=== PATIENT | female | born 1950 | race Caucasian/White ===

== ENCOUNTER 2019-08-07 15:01 | Inpatient (IN) | payer MEDICAID ==
[2019-08-07] VITALS (12 sets, daily range): BP systolic 46–113; BP diastolic 22–61
[~2019-08-07] VITALS: Ht 160 cm; Wt 61.2 kg
--- NOTE | 2019-08-07 15:03 | NUR ---
BIBA FROM HOME. PER GRAND DAUGHTER, PT HAS BEEN ALOC X 1 DAY. PT NOTED TO HAVE GENERALIZED YELLOW SKIN COLOR. GRANDDAUGHTER STATES THAT PT WAS RECENTLY DIAGNOSED WITH LIVER CANCER X 1 MONTH. PT IS NOT ON ANY CANCER TREATMENT. PT GCS OF 7. PT PUT ON NON RE BREATHER MASK 10LPM, 02 SAT 100%. PT NON VERBAL AT THIS TIME. PT PLACED ON FULL ENGINE ROOM HELPER. ER TO EVALUATE PT.
[2019-08-07] MEDS ORDERED: NOREPINEPHRINE 4 MG in DEXTROSE 5% 250 ML IV ONE (15:30)
--- NOTE | 2019-08-07 15:30 | NUR ---
DR MATTHEW AT BEDSIDE FOR IO PROCEDURE ON RIGHT UPPER DUFFY.
--- NOTE | 2019-08-07 15:34 | NUR ---
NS 0.9% 1000 ML BOLUS RUNNING WITH A PRESSURE BAG ON IO TO RIGHT ANTERIOR DUFFY
--- NOTE | 2019-08-07 15:42 | NUR ---
Modesta astudillo in [facility] - 08/07/[address] MATTHEW AT BEDSIDE FOR FEMORAL CENTRAL LINE PROCEDURE.
--- NOTE | 2019-08-07 15:45 | NUR ---
2 MANAGER ANDROID AT BEDSIDE TO ASSIST DR MATTHEW.
--- NOTE | 2019-08-07 15:45 | NUR ---
DR MATTHEW AT BEDSIDE. TIME OUT DONE AT BEDSIDE WITH TWO IDENTIFIERS FOR FEMORAL CENTRAL LINE USING STERILE TECHNIQUE.
--- NOTE | 2019-08-07 15:53 | NUR ---
PT TOLERATING PROCEDURE WELL. MOANING SOUNDS NOTED.
--- NOTE | 2019-08-07 16:15 | NUR ---
LEFT FEMORAL CENTRAL LINE INITIATED BY DR MATTHEW, INTACT AND PATENT. AWAITING FOR RADIOLOGY.
[2019-08-07] MEDS ORDERED: NACL 0.9% 2,000 ML IV SCH (16:19)
[2019-08-07] MEDS ORDERED: PIPERACILLIN/TAZOBACTAM 3.375 GM in DEXT 5% MINI-BAG PLUS 50 ML IV ONE (16:20)
[2019-08-07] MEDS ORDERED: VANCOMYCIN 1,000 MG in DEXTROSE 5% 250 ML IV ONE (16:20)
--- NOTE | 2019-08-07 16:25 | NUR ---
RADIOLOGY AT BEDSIDE
--- NOTE | 2019-08-07 16:35 | NUR ---
5 MCG/MIN OF LEVOPHED TITRATED ORDERED, B/P:65/34, HR: 91
--- NOTE | 2019-08-07 16:40 | NUR ---
LEVOPHED TITRATED TO 7 MCG/MIN. B/P: 66/42, HR: 89
--- NOTE | 2019-08-07 16:50 | NUR ---
LEVOPHED TITRATED TO 8 MCG/MIN. BP:88/45, HR: 89
[2019-08-07 16:51] LABS: HEMATOCRIT 30.7 % (36-48); HEMOGLOBIN 9.3 g/dL (12.0-16.0); MEAN CORPUSCULAR HEMOGLOBIN 35 pg (27-31); MEAN CORPUSCULAR HGB CONC 30 g/dL (33-37); MEAN CORPUSCULAR VOLUME 116.3 fL (80-94); PLATELET COUNT (AUTO) 73 K/uL (140-450); RED BLOOD CELL COUNT(AUTO) 2.64 MIL/uL (4.20-5.40); RED CELL DISTRIBUTION WIDTH 23.8 % (11.6-13.7); WHITE BLOOD COUNT (AUTO) 15.2 K/uL (4.8-10.8)
--- NOTE | 2019-08-07 17:01 | NUR ---
CALLED AND ASKED PREMIUM AUDITOR TO COME.
[2019-08-07 17:04] LABS: PROTHROMBIN TIME 23.5 secs (10.8-13.4)
--- NOTE | 2019-08-07 17:06 | NUR ---
PT TO CT SCAN VIA ROSA W/ JASVIR AND PRIMARY RN.
[2019-08-07] MEDS ORDERED: LACTATED RINGERS 1,000 ML IV ONE (17:10)
[2019-08-07 17:11] LABS: LYMPHOCYTES % (MANUAL) 5 % (20-46); MONOCYTES % (MANUAL) 15 % (5-12)
[2019-08-07 17:12] LABS: BASOPHILS % (MANUAL) 0 % (0-2); EOSINOPHILS % (MANUAL) 0 % (0-4)
[2019-08-07 17:14] LABS: CORRECTED WHITE BLOOD COUNT 14.5 K/uL (4.5-11.0)
[2019-08-07 17:19] LABS: ALBUMIN 1.3 g/dL (3.4-5.0); ANION GAP 17.4 (8-16); CARBON DIOXIDE 29.3 mmol/L (21-32); CREATININE 2.4 mg/dL (0.6-1.3); POTASSIUM 4.7 mmol/L (3.5-5.1); TOTAL BILIRUBIN 11.6 mg/dL (0.0-1.0)
--- NOTE | 2019-08-07 17:29 | NUR ---
Patient returned from CT scan. RN re-evaluating patient at bedside.
[2019-08-07 17:30] LABS: APPEARANCE,URINE SL CLOUDY (CLEAR); BILIRUBIN,URINE 3+ (NEGATIVE); BLOOD, URINE NEGATIVE (NEGATIVE); COLOR,URINE AMBER (YELLOW); LEUKOCYTE ESTERASE ,URINE NEGATIVE (NEGATIVE); NITRITE, URINE NEGATIVE (NEGATIVE); PH,URINE 5.5 (5.0-9.0); UGLUCOSE NEGATIVE (NEGATIVE)
[2019-08-07] MEDS ORDERED: PIPERACILLIN/TAZOBACTAM 3.375 GM VIAL IV ONE (17:57)
[2019-08-07] MEDS ORDERED: VANCOMYCIN 1,000 MG VIAL ONE (17:58)
--- NOTE | 2019-08-07 18:23 | NUR ---
OPENS EYES INTERMITTENTLY. UNABLE TO FOLLOW COMMANDS. MOANING AT TIMES. EVEN AND UNLABORED BREATHING. NO SIGNS AND SYMPTOMS OF DISTRESS NOTED. DAUGHTER AT BEDSIDE. WILL CONTINUE TO MONITOR.
--- NOTE | 2019-08-07 18:30 | NUR ---
DR AMTTHEW AT BEDSIDE FOR PT RE EVALUATION AND SPEAKING TO PT'S DAUGHTER
[2019-08-07] MEDS ORDERED: DOCUSATE SODIUM 100 MG GELCAP PO PRN (18:40)
[2019-08-07] MEDS ORDERED: HYDROcodone/APAP 7.5/325 MG 1 TAB PO PRN (18:40)
[2019-08-07] MEDS ORDERED: ACETAMINOPHEN 325 MG TAB PO PRN (18:40)
[2019-08-07] MEDS ORDERED: fentaNYL 0.05 MG/ML VIAL IVP ONE (18:40)
[2019-08-07] MEDS ORDERED: SODIUM PHOSPHATE 118 ML ENEM RC ONE (19:10)
[2019-08-07] MEDS ORDERED: VANCOMYCIN PER PHARMACY MC PRN (19:25)
--- NOTE | 2019-08-07 19:25 | NUR ---
Pt report given to DIANA MALONE. Transfer of care at this time.
[2019-08-07 19:33] LABS: MAGNESIUM 2.7 mg/dL (1.8-2.4); PHOSPHORUS 6.3 mg/dL (2.5-4.9); THYROID STIMULATING HORMONE 1.63 uIU/mL (0.34-3.74)
--- NOTE | 2019-08-07 19:46 | NUR ---
INFORMED QUALITY TECHNICIAN THAT PT STILL INFUSING VACO AND LEVOPHED.
--- NOTE | 2019-08-07 19:47 | NUR ---
Patient will be admitted to care of [facility]. Admited to ICU. Will go to room BED 2. Belongings list completed. Report to DRUM SANDER. TRANSFERRED VIA GURNEY. ACCOMPANIED BY ARISTIDES ORTIZ, AIRAM EMT.
[2019-08-07 19:52] LABS: CHOL/HDL RATIO 11.7 (1-4.5)
--- NOTE | 2019-08-07 19:55 | NUR ---
REPORT GIVEN BY ER NURSE KIRA AND ARISTIDES AT BEDSIDE. ARRIVED VIA GURNEY ON A NON REBREATHER MASK OF 10ML/MIN FROM EMERGENCY ROOM. PATIENT HAD GRANDDAUGHTER AMOL PRESENT. PATIENT MOANING LIGHTLY. INFORMED GRANDAUGHTER AND PATIENT OF MOVING TO ICU BED AND APPLIED NEW LEADS FOR MANAGER DECISION SUPPORT. PATIENT HAS LAYER OF WHITE COATING ON TONGUE. GRANDDAUGHTER AND DAUGHTER STATES IT LOOKS LIKE PUS THAT KEEPS GETTING BIGGER. VAGINAL BLEEDING PRESENT AROUND BOWER CATHETER WHICH WAS PLACED IN EMERGENCY ROOM. MD VALADEZ AT BEDSIDE AND MADE AWARE OF BOTH. LEVOPHED @ 8 RUNNING IN LEFT FEMORAL AT THIS TIME. PATIENT IS YELLOW IN APPEARANCE THROUGHOUT WHOLE BODY. BRUISING ON LEFT HIP X 3. SKIN TEAR ON SACRAL AREA. NEW DRESSING APPLIED BY EMERGENCY. EMERGENCY TOOK PHOTOS. WOUND CULTURE DONE ON WOUND AFTER CLEANED IN ICU. MRSA CULTURE OF NARES TAKEN IN ICU. BRUISING NOTED BILATERALLY ON INNER ANKLES. MOTIFIED CODE. FAMILY STATES NO COMPRESSIONS AND NO CRASH CART. ONLY LEVOPHED AT THIS TIME PER MD. SPOKE WITH FAMILY OF PICC LINE. PATIENTS DAUGHTER RAFAT GAVE CONSENT FOR PICC LINE. PATIENT SHOWING NO S/S OF DISTRESS AT THIS TIME. [id number] 25 100%. WILL CONTINUE TO MONITOR.
--- NOTE | 2019-08-07 20:00 | NUR ---
CONSENT FOR PICC LINE PLACEMENT SIGNED BY FAMILY
--- NOTE | 2019-08-07 20:10 | NUR ---
AT BEDSIDE. [facility]. AWARE OF WHITE STUFF ON TONGUE. AND SCANT VAGINAL BLEEDING.
--- NOTE | 2019-08-07 20:25 | NUR ---
PICC LINE NURSE AND CHIEF ACCOUNTANT PRESENT AT BEDSIDE.PREPARING PLACEMENT OF PICC LINE ON RIGHT SIDE UPPER ARM.
--- NOTE | 2019-08-07 20:50 | NUR ---
ARCHANA AT PATIENTS BEDSIDE
[2019-08-07] MEDS ORDERED: LACTULOSE 20 GM/30 ML UDC PO SCH (21:00)
--- NOTE | 2019-08-07 21:00 | NUR ---
DAUGHTER (RAFTA [phone]) AND GRANDDAUGHTER (AMOL [phone]) AT PT BEDSIDE
--- NOTE | 2019-08-07 21:15 | NUR ---
DR AYALA AT BEDSIDE. SPEAKING WITH FAMILY AND TO PATIENT. VSS. WILL CONTINUE TO MONITOR
--- NOTE | 2019-08-07 21:20 | NUR ---
PER DR AYALA AND [facility] AT BEDSIDE, REMOVE IO LINE AND FEMORAL LINE DUE TO MIDLINE INSERTION. WILL FOLLOW UP
[2019-08-07] MEDS: DEXT 5% / NACL 0.45% 1,000 ML IV SCH (21:40)
--- NOTE | 2019-08-07 22:51 | NUR ---
per mack keep femoral and midline and continue to d/c io in left lower leg. io was removed with scant blood noted. pressure dressing placed in leg. will continue to monitor
--- NOTE | 2019-08-07 23:04 | NUR ---
edward called from lab. critical value. troponin 0.[address] giron. aware. lactic acid 3.3 also states she will cancel chest xray d/t midline
--- NOTE | 2019-08-07 23:15 | NUR ---
ASKED HOUSE SUP FOR FLEET ENEMA AND ZOSYN 2.25
[2019-08-07] MEDS ORDERED: fentaNYL 0.05 MG/ML VIAL ONE (23:26)
--- NOTE | 2019-08-07 23:49 | NUR ---
MUTHIAH STATES WILL CALL BACK ABOUT MEDICATIONS. CRITICAL LABS "THATS FINE" NO CHANGES AT THIS TIME
[2019-08-07] MEDS: PIPERACILLIN/TAZOBACTAM 2.25 GM in DEXTROSE 5% 50 ML IV SCH (23:57)
[2019-08-08] VITALS (94 sets, daily range): BP systolic 61–138; BP diastolic 28–82
[2019-08-08] MEDS ORDERED: PIPERACILLIN/TAZOBACTAM 2.25 GM VIAL IV ONE ×2 (00:01→03:51)
[2019-08-08] MEDS ORDERED: NOREPINEPHRINE 8 MG in DEXTROSE 5% 250 ML IV PRN (00:20)
--- NOTE | 2019-08-08 00:20 | NUR ---
CALLED [facility] FOR LEVOPHED ORDER
--- NOTE | 2019-08-08 00:25 | NUR ---
CALLED AFTER HOURS PHARMACY TO HAVE THEM VERIFY THE LEVOPHED ORDER FOR THE PT.
[2019-08-08] MEDS: NOREPINEPHRINE 16 MG in DEXTROSE 5% 250 ML IV PRN (00:45)
[2019-08-08] MEDS ORDERED: NOREPINEPHRINE 4 MG/4 ML VIAL IV ONE (00:48)
[2019-08-08] MEDS: ONDANSETRON 4 MG/2 ML VIAL IM/IVP PRN ×2 (02:03→09:05)
[2019-08-08] MEDS: DEXT 5% / NACL 0.45% 1,000 ML IV SCH ×3 (02:37→17:39)
[2019-08-08] MEDS ORDERED: NACL 0.9% 1,000 ML IV ONE (05:20)
[2019-08-08] MEDS: PIPERACILLIN/TAZOBACTAM 2.25 GM in DEXTROSE 5% 50 ML IV SCH ×3 (06:51→22:37)
--- NOTE | 2019-08-08 07:05 | NUR ---
REPORT GIVEN TO ANN Pack FOR CONTINUITY OF CARE Addendum: 08/08/19 at 2030 by Yanci Johnson RN RN PLEASE DISREGARD WRONG TIME
[2019-08-08] MEDS ORDERED: DEXTROSE 50% 50 ML SYR IVP PRN (07:10)
--- NOTE | 2019-08-08 07:45 | NUR ---
WASTED SUCCINYLCHOLINE 100 MG WITH WARNER BECKETT.ORDERED 100 MG ONLY.
--- NOTE | 2019-08-08 08:31 | NUR ---
PATIENT HAS BEEN SCREENED AND CATEGORIZED HIGH NUTRITION RISK. PATIENT WILL BE SEEN WITHIN 1-2 DAYS OF ADMISSION. 08/08/19-08/09/[address]
[2019-08-08] MEDS: NYSTATIN 500 MU/5 ML UDC PO SCH ×4 (09:00→20:04)
[2019-08-08] MEDS ORDERED: LACTULOSE 20 GM/30 ML UDC PO SCH (09:00)
[2019-08-08] MEDS: LACTOBACILLUS RHAMNOSUS GG 1 EACH CAP PO SCH (09:00)
[2019-08-08] MEDS: BLOOD GLUCOSE MONITORING 1 DEV DEV FS SCH ×3 (09:13→17:16)
--- NOTE | 2019-08-08 10:24 | NUR ---
NO CO NAUSEA.
--- NOTE | 2019-08-08 12:10 | NUR ---
08/08/19 RD INITIAL ASSESSMENT COMPLETED PLEASE REFER TO NUTRITION ASSESSMENT UNDER CARE ACTIVITY FOR ESTIMATED NUTRITIONAL NEEDS. RD RECOMMENDATIONS: 1. CONTINUE CLEAR LIQUID DIET TOLERATED. 2. RECOMMEND ADDING ENSURE CLEAR BID TO OPTIMIZE NUTRITION INTAKE. 3. WHEN MEDICALLY STABLE, CONSIDER CONSULTING CHEESEMAKER HELPER FOR APPROPRIATE DIET MODIFICATION AND CONSIDER ADDING ENSURE ENLIVE BID TO OPTIMIZE NUTRITION INTAKE. 4. RD WILL F/U 2-3 DAYS; HIGH RISK. CHOCO MCCLAIN, RD
[2019-08-08 12:20] LABS: HEMOGLOBIN 11.4 g/dL (12.0-16.0); MEAN CORPUSCULAR HEMOGLOBIN 35 pg (27-31); MEAN CORPUSCULAR HGB CONC 31 g/dL (33-37); MEAN CORPUSCULAR VOLUME 113.6 fL (80-94); RED CELL DISTRIBUTION WIDTH 23.2 % (11.6-13.7)
[2019-08-08 12:27] LABS: MAGNESIUM 2.3 mg/dL (1.8-2.4); PHOSPHORUS 8.1 mg/dL (2.5-4.9)
[2019-08-08 12:30] LABS: ANION GAP 16.9 (8-16); CARBON DIOXIDE 25.4 mmol/L (21-32); CREATININE 2.4 mg/dL (0.6-1.3); POTASSIUM 4.3 mmol/L (3.5-5.1)
[2019-08-08 12:32] LABS: HEMATOCRIT 36.8 % (36-48); PLATELET COUNT (AUTO) 66 K/uL (140-450); RED BLOOD CELL COUNT(AUTO) 3.24 MIL/uL (4.20-5.40)
[2019-08-08 13:04] LABS: WHITE BLOOD COUNT (AUTO) 33.7 K/uL (4.8-10.8)
[2019-08-08 13:06] LABS: LYMPHOCYTES % (MANUAL) 3 % (20-46); MONOCYTES % (MANUAL) 3 % (5-12)
[2019-08-08] MEDS: INSULIN LISPRO SLIDING SCALE 100 UNITS/ML VIAL SUBQ PRN ×2 (13:14→17:21)
[2019-08-08] MEDS: Z-GUARD PASTE TP SCH ×2 (13:19)
[2019-08-08] MEDS: MORPHINE SULFATE 2 MG/ML SYR IVP PRN ×2 (13:36→20:22)
--- NOTE | 2019-08-08 13:36 | NUR ---
dr reyes did not want heparin for central insertion
--- NOTE | 2019-08-08 14:20 | NUR ---
WHILE DOING THE SCREEN, PATIENT'S DAUGHTER RAFAT MENTIONED ABOUT HOSPICE. SHE STATED WHEN THEY WERE STILL IN [place], IT WAS RECOMMENDED TO THEM BUT DURING THAT TIME THEY WERE NOT READY YET. SHE ALSO STATED IF WE CAN HAVE SOMEONE FROM THE HOSPICE TO COME IN AND EXPLAIN FURTHER WHAT DOES HOSPICE MEANS AND PREFERABLY OCCITAN SPEAKING. I INFORMED HER THAT I CAN ARRANGE FOR THAT. DR CLARKE MADE AWARE. CONTACTED GEORGE OF [facility] AT [phone], SHE STATED SHE WILL HAVE ONE TO COME IN AND SPEAK TO THE FAMILY.
[2019-08-08] MEDS ORDERED: ALBUMIN HUMAN 25% 100 ML IV ONE (14:45)
[2019-08-08] MEDS ORDERED: PHYTONADIONE 10 MG/ML AMP IV SCH (14:50)
--- NOTE | 2019-08-08 15:53 | NUR ---
PER Dr. Park and Kamla the [employer] they are placing an order for a P500 Low Air loss Mattress, I have called [facility] and placed the order with Fritz at [facility] confirmation number [id number]
[2019-08-08] MEDS ORDERED: VANCOMYCIN 750 MG in DEXTROSE 5% 250 ML IV SCH (16:00)
--- NOTE | 2019-08-08 16:00 | NUR ---
LEFT FEMORAL CENTRAL LINE REMOVED.PRESSURE APPLIED.NO BLEEDING NOTED
[2019-08-08 17:13] LABS: T4 (THYROXINE) 1.4 ug/dL (4.5-12.0)
[2019-08-08] MEDS: OCTREOTIDE ACETATE 1.25 MG in NACL 0.9% 250 ML IV SCH (17:15)
[2019-08-08] MEDS: LACTULOSE 20 GM/30 ML UDC PO SCH (17:18)
[2019-08-08] MEDS: MAGNESIUM CITRATE 300 ML BTL PO SCH ×2 (17:22→18:30)
[2019-08-08] MEDS ORDERED: BISACODYL 10 MG SUPP RC ONE (17:40)
--- NOTE | 2019-08-08 18:30 | NUR ---
PT IS NOT ABLE TO DRINK MAG CITRATE .PT IS NOT FULLY AWAKE .FAMILY AT THE BEDSIDE.SUGGESTED TO FAMILY NEEDS TO INSERT NGT SO CAN GIVE MEDS BUT FAMILY REFUSED NGT.DR ARITA AWARE.PT UNABLE TO EAT DINNER TOO.
--- NOTE | 2019-08-08 19:05 | NUR ---
REORT GIVEN TO ANN AHUMADA FOR CONTINUITY OF CARE
--- NOTE | 2019-08-08 19:30 | NUR ---
RECEIVED REPORT FROM MORNING RNSCOTT, FOR CONTINUITY OF CARE. PT AFEBRILE. FLACC 0. PT DOES NOT APPEAR TO BE EXPERIENCING ANY DISCOMFORT AT THIS TIME. PT ABLE TO OPEN EYES TO TOUCH. PT ABLE TO FOLLOW SIMPLE COMMANDS. PT LAYING IN BED. LUNG SOUNDS AUSCULTATED AND WAS CLEAR. PT ON OXYGEN AT 8L/MIN VIA MASK. RESPIRATIONS EVEN AND UNLABORED. NO SOB NOTED. CHEST RISE SYMMETRIC. S1+S2 HEARD. SR ON MONITOR. PULSES PALPABLE IN ALL EXTREMITIES. NO JVD NOTED. PT ON LEVOPHED 16MG IN D5W 250ML RUNNING AT 4MCG/MIN. ABDOMEN ROUND, SOFT AND NONDISTENDED. NO BM NOTED AT THIS TIME. BS ACTIVE IN ALL QUADRANTS. PT HAS BOWER CATHETER IN PLACE. CLOUDY, DARK AHMET URINE NOTED. PT HAS RIGHT IJ CENTRAL LINE WITH THE DRESSING CLEAN, DRY AND INTACT. NO BLEEDING NOTED ON SITE. RIGHT UPPER ARM MIDLINE IN PLACE. DRESSING CLEAN, DRY AND INTACT. NOTED SITE OF REMOVED LEFT FEMORAL CENTRAL LINE WITH NO BLEEDING. PT IS ON OCREOTIDE AT 10ML/HR AND D5 0.45%NS AT 126ML/HR. KEPT HOB AT 30 DEGREES. PT SKIN IS DRY AND WARM TO TOUCH. ALL SAFETY PRECAUTIONS ARE IN PLACE. CALL LIGHT WITHIN REACH. WILL CONTINUE TO MONITOR PT.
--- NOTE | 2019-08-08 20:37 | NUR ---
FAMILY AT BEDSIDE AT THIS TIME. ASKING QUESTIONS REGARDING THE PT'S CONDITION. INFORMED THEM REGARDING HOW PT IS CURRENTLY. FAMILY WAS ASKING IF PT HAD A BM. INFORMED THAT PER REPORT, PT HAD 3 BM. ALSO NOTIFIED THEM THAT PT HAD A SUPPOSITORY ABOUT 2 HOURS AGO AND RN TO MONITOR HER BM. FAMILY IS VERY CONCERNED REGARDING PT HAVING A BM. FAMILY ARE ASKING TO NOT GIVE MORPHINE NOT UNLESS IT IS NEEDED. INFORMED THE FAMILY THAT THIS IS CURRENTLY WHAT RNS HAVE BEEN DOING. MORPHINE IS CURRENTLY ORDERED PRN.
--- NOTE | 2019-08-08 21:35 | NUR ---
DR. CHÁVEZ IN THE UNIT TO SEE PT. UPDATED HIM REGARDING THE PT'S CONDITION
--- NOTE | 2019-08-08 22:30 | NUR ---
PT HAD A BM. SMALL AND BROWN IN COLOR. PT CLEANED. TURNED AND REPOSITIONED. TOLERATED BEING TURNED FAIRLY. ALL SAFETY PRECAUTIONS ARE IN PLACE. CALL LIGHT WITHIN REACH. WILL CONTINUE TO MONITOR PT.
[2019-08-09] VITALS (80 sets, daily range): BP systolic 82–119; BP diastolic 39–63
--- NOTE | 2019-08-09 00:08 | NUR ---
DR. FUENTES AT BEDSIDE TO SEE PT. UPDATED HIM REGARDING PT'S CONDITION. RECEIVED NEW ORDERS.
[2019-08-09] MEDS: Z-GUARD PASTE TP SCH ×2 (00:20→12:31)
[2019-08-09] MEDS: NOREPINEPHRINE 16 MG in DEXTROSE 5% 250 ML IV PRN ×2 (00:24→19:39)
[2019-08-09] MEDS ORDERED: NS IV ONE (01:01)
[2019-08-09] MEDS ORDERED: FLUCONAZOLE IV ONE (01:01)
[2019-08-09] MEDS ORDERED: FLUCONAZOLE 400 MG/NS PREMIX 200 ML IV SCH (01:30)
[2019-08-09] MEDS: DEXT 5% / NACL 0.45% 1,000 ML IV SCH ×2 (02:28→05:33)
--- NOTE | 2019-08-09 02:28 | NUR ---
RECEIVED A CALL FROM PT'S AMOL YIN. SHE WANTED TO ASK REGARDING HOW THE PT IS DOING. INFORMATION WAS GIVEN.
--- NOTE | 2019-08-09 02:40 | NUR ---
Follow up with an order for a P500 Low Air loss [place] [employer] with confirmation number [id number], stated that the security system installer will call for delivery
--- NOTE | 2019-08-09 04:50 | NUR ---
MORNING CARE PROVIDED TO PT. BOWER CATHETER CARE PROVIDED WELL. PT HAD ANOTHER BM THAT IS BROWN IN COLOR. SMALL IN AMOUNT AND SOFT. PT OPEN EYES AND WAS ABLE TO SLIGHTLY ASSIST IN TURNING. RESPIRATIONS EVEN AND UNLABORED. CHEST RISE SYMMETRIC. OXYGEN SATURATION WNL. PT STILL ON LEVOPHED DRIP. ALL SAFETY PRECAUTIONS REMAINS IN PLACE. CALL LIGHT WITHIN REACH. WILL CONTINUE TO MONITOR PT.
--- NOTE | 2019-08-09 06:02 | NUR ---
NO CHANGE IN PT'S CONDITION AT THIS TIME. RESPIRATIONS REMAINS EVEN AND UNLABORED. FLACC 0. PT DOES NOT APPEAR TO BE EXPERIENCING ANY DISCOMFORT AT THIS TIME. ALL SAFETY PRECAUTIONS ARE IN PLACE. WILL CONTINUE TO MONITOR PT.
[2019-08-09] MEDS: PIPERACILLIN/TAZOBACTAM 2.25 GM in DEXTROSE 5% 50 ML IV SCH ×3 (06:11→22:12)
[2019-08-09 06:50] LABS: HEMOGLOBIN 9.1 g/dL (12.0-16.0); MEAN CORPUSCULAR VOLUME 115.4 fL (80-94)
[2019-08-09 06:57] LABS: CARBON DIOXIDE 24.7 mmol/L (21-32); POTASSIUM 3.7 mmol/L (3.5-5.1)
[2019-08-09 06:58] LABS: MEAN CORPUSCULAR HEMOGLOBIN 35 pg (27-31); MEAN CORPUSCULAR HGB CONC 30 g/dL (33-37)
[2019-08-09 06:59] LABS: CREATININE 2.5 mg/dL (0.6-1.3)
--- NOTE | 2019-08-09 07:10 | NUR ---
RECEIVED BEDSIDE REPORT FROM BACCARAT DEALER RNJAMES. PT IN BED, EYES CLOSED, AROUSED BY NAME, OX1, LETHARGIC. AFEBRILE. FLACC 0. ON 8L O2 VIA MASK. LUNG SOUNDS CLEAR. RESPIRATIONS EVEN AND UNLABORED. SR ON MONITOR, S1S2 HEARD. PULSES PALPABLE IN ALL EXTREMITIES. RIGHT IJ NOTED TRIPLE LUMEN, RUNNING LEVOPHED 8MCG/MIN, D5 1/2 NS 126ML/HR, OCTREOTIDE 50MCG/HR, DRESSING CLEAN AND INTACT. RIGHT UA MIDLINE ASYMPTOMATIC, CLEAN AND INTACT. ABDOMEN ROUND, SOFT AND NONDISTENDED. BOWEL SOUND ACTIVE IN ALL QUADRANTS. PT HAS BOWER CATHETER IN PLACE DRAINING CLOUDY, LIGHT AHMET URINE NOTED. LEFT FEMORAL CENTRAL LINE DC'D YESTERDAY, GAUZE DRESSING CLEAN AND INTACT. KEPT HOB AT 30 DEGREES. ALL SAFETY PRECAUTIONS ARE IN PLACE. CALL LIGHT WITHIN REACH. WILL CONTINUE TO MONITOR.
[2019-08-09 07:13] LABS: PLATELET COUNT (AUTO) 60 K/uL (140-450); WHITE BLOOD COUNT (AUTO) 43.4 K/uL (4.8-10.8)
[2019-08-09 07:14] LABS: LYMPHOCYTES % (MANUAL) 3 % (20-46); MONOCYTES % (MANUAL) 10 % (5-12)
[2019-08-09] MEDS: LACTOBACILLUS RHAMNOSUS GG 1 EACH CAP PO SCH (08:35)
[2019-08-09] MEDS: CALCIUM ACETATE 667 MG TAB PO SCH ×2 (08:35→17:20)
[2019-08-09] MEDS: NYSTATIN 500 MU/5 ML UDC PO SCH ×4 (08:35→20:11)
[2019-08-09] MEDS: LACTULOSE 20 GM/30 ML UDC PO SCH ×3 (08:35→17:20)
[2019-08-09] MEDS: BLOOD GLUCOSE MONITORING 1 DEV DEV FS SCH ×3 (08:39→16:32)
[2019-08-09] MEDS ORDERED: PANTOPRAZOLE 40 MG INJ VIAL IVP SCH (09:00)
[2019-08-09 09:47] LABS: MAGNESIUM 2.2 mg/dL (1.8-2.4); PHOSPHORUS 7.9 mg/dL (2.5-4.9)
--- NOTE | 2019-08-09 12:10 | NUR ---
PT WAS CLEANED, BMX1 FORMED, DARK BROWN STOOL. CHUX CHANGED. BOWER CARE DONE.
[2019-08-09 12:23] LABS: ALBUMIN 1.9 g/dL (3.4-5.0); BILIRUBIN,DIRECT 12.2 mg/dL (0.0-0.3); TOTAL BILIRUBIN 14.9 mg/dL (0.0-1.0)
[2019-08-09] MEDS: INSULIN LISPRO SLIDING SCALE 100 UNITS/ML VIAL SUBQ PRN ×2 (12:23→19:39)
[2019-08-09] MEDS ORDERED: PHYTONADIONE 10 MG in NACL 0.9% 50 ML IV ONE (12:40)
[2019-08-09] MEDS: metroNIDAZOLE 250 MG/NS PREMIX 50 ML IV SCH ×2 (14:15→20:11)
[2019-08-09] MEDS: DEXT 5% /NACL 0.9% 1,000 ML IV SCH (14:15)
--- NOTE | 2019-08-09 14:50 | NUR ---
FAMILY GIVE PERMISSION TO DO NGT. NGT HAS BEEN PUT IN. WAITING FOR CHEST X RAY VERIFICATION. PT TOLERATED WELL.
[2019-08-09] MEDS ORDERED: VANCOMYCIN 750 MG in NACL 0.9% 250 ML IV SCH (16:00)
[2019-08-09 16:33] LABS: PROTHROMBIN TIME 12.3 secs (10.8-13.4)
[2019-08-09] MEDS: ONDANSETRON 4 MG/2 ML VIAL IM/IVP PRN (17:05)
[2019-08-09] MEDS: OCTREOTIDE ACETATE 1.25 MG in NACL 0.9% 250 ML IV SCH (17:20)
--- NOTE | 2019-08-09 17:40 | NUR ---
DAUGHTER AT BEDSIDE, OK WITH PUTTING ON SOFT WRIST RESTRAINT.
--- NOTE | 2019-08-09 17:50 | NUR ---
FEEDING STARTED AT 20ML/HR.
--- NOTE | 2019-08-09 19:30 | NUR ---
RECEIVED REPORT FROM MORNING RN, KRYS, FOR CONTINUITY OF CARE. PT AFEBRILE. FLACC 0. PT LAYING IN BED. DOES NOT APPEAR TO BE EXPERIENCING ANY DISCOMFORT AT THIS TIME. ABLE TO FOLLOW SIMPLE COMMANDS. PT AWAKE AND EYES OPENS SPONTANEOUSLY. LUNG SOUNDS AUSCULTATED AND WAS CLEAR. PT ON OXYGEN AT 4L/MIN VIA OXIMIZER. RESPIRATIONS EVEN AND UNLABORED. NO SOB NOTED. CHEST RISE SYMMETRIC. S1+S2 HEARD. SR ON MONITOR. PULSES PALPABLE IN ALL EXTREMITIES. NO JVD NOTED. PT ON LEVOPHED 16MG IN D5W 250ML RUNNING AT 8MCG/MIN (7.5 ML/HR). PT HAS PITTING EDEMA ON LOWER EXTREMITIES 3+. ABDOMEN ROUND, SOFT AND NONDISTENDED. NO BM NOTED AT THIS TIME. BS ACTIVE IN ALL QUADRANTS. NGT THROUGH RIGHT NARES AND SECURED IN PLACE. VITAL AF RUNNING AT 20ML/HR. NO RESIDUAL ASPIRATED. PT HAS BOWER CATHETER IN PLACE. CLOUDY, YELLOW URINE NOTED. PT HAS RIGHT IJ CENTRAL LINE WITH THE DRESSING CLEAN, DRY AND INTACT. NO BLEEDING NOTED ON SITE. RIGHT UPPER ARM MIDLINE IN PLACE. DRESSING CLEAN, DRY AND INTACT. NOTED SITE OF REMOVED LEFT FEMORAL CENTRAL LINE WITH NO BLEEDING. PT IS ON OCREOTIDE AT 10ML/HR AND D5 NS AT 10ML/HR. KEPT HOB AT 30 DEGREES. PT SKIN IS DRY AND WARM TO TOUCH. ALL SAFETY PRECAUTIONS ARE IN PLACE. CALL LIGHT WITHIN REACH. WILL CONTINUE TO MONITOR PT.
--- NOTE | 2019-08-09 19:33 | NUR ---
DR. CHÁVEZ AT BEDSIDE TO SEE PT. INFORMED HIM REGARDING ANY CHANGES IN PT'S CONDITION. NO NEW ORDERS RECEIVED AT THIS TIME.
[2019-08-09] MEDS ORDERED: NOREPINEPHRINE 4 MG/4 ML VIAL IV ONE (19:40)
--- NOTE | 2019-08-09 20:10 | NUR ---
PT TURNED AND REPOSITIONED AT THIS TIME. NO BM NOTED. FEEDING STILL RUNNING AT 20ML/HR. HOB KEPT AT 30 DEGREES. FLACC 0. SR ON MONITOR. BP WNL AT THIS TIME. ALL SAFETY PRECAUTIONS ARE KEPT IN PLACE. WILL CONTINUE TO MONITOR PT.
[2019-08-09] MEDS ORDERED: NACL 0.9% 500 ML IV ONE (20:35)
[2019-08-09] MEDS: MORPHINE SULFATE 2 MG/ML SYR IVP PRN (21:07)
--- NOTE | 2019-08-09 21:07 | NUR ---
PT'S DAUGHTER, RAFAT, AT BEDSIDE TO SEE PT. PT CURRENTLY MOANING AT THIS TIME. PT'S DAUGHTER WAS REQUESTING IF PT CAN BE GIVEN PAIN MEDICATION. MEDICATION GIVEN TO PT. RESPIRATIONS ARE EVEN AND UNLABORED. CURRENT RATE 15 BREATHS PER MINUTE.
--- NOTE | 2019-08-09 21:10 | NUR ---
FAMILY AT BEDSIDE WANTING TO SPEAK WITH DR. CHÁVEZ. UNKNOWN TO WHY, BUT DR. CHÁVEZ NOTIFIED REGARDING THIS AND WILL COME TO THE UNIT.
--- NOTE | 2019-08-09 21:20 | NUR ---
DR. CHÁVEZ AT BEDSIDE TO SPEAK WITH THE PT'S FAMILY.
--- NOTE | 2019-08-09 22:03 | NUR ---
FEEDING PAUSED AND PT TURNED AND REPOSITIONED AT THIS TIME. ABLE TO OPEN EYES. PT TOLERATED BEING TURNED FAIRLY. PT HAS NO BM AT THIS TIME. REMAINS SR ON MONITOR. TUBE FEEDING RESUMED. WILL RECHECK FOR RESIDUAL AT MIDNIGHT. WILL CONTINUE TO MONITOR PT.
--- NOTE | 2019-08-09 22:50 | NUR ---
DR. FUENTES AT BEDSIDE TO SEE PT. UPDATED HIM REGARDING THE PT'S CONDITION. INFORMED HIM REGARDING THE UPDATES ON MICROBIOLOGY. RECEIVED AN ORDER TO D/C FATEMEH AT THIS TIME.
[2019-08-10] VITALS (95 sets, daily range): BP systolic 88–124; BP diastolic 40–70
--- NOTE | 2019-08-10 00:03 | NUR ---
RECEIVED A CALL FROM PT'S AMOL YNI, ASKING REGARDING HOW THE PT CURRENTLY IS. GAVE HER AN UPDATE REGARDING THE PT. VS REMAINS STABLE AT THIS TIME. FLACC 0. PT DOES NOT APPEAR TO BE EXPERIENCING ANY DISCOMFORT AT THIS TIME. ALL SAFETY PRECAUTIONS REMAINS IN PLACE. HOB KEPT AT 30 DEGREES. WILL CONTINUE TO MONITOR PT.
--- NOTE | 2019-08-10 00:08 | NUR ---
PT TURNED AND REPOSITIONED AT THIS TIME. STILL NO BM NOTED. PT TOLERATING TUBE FEEDING WELL. CHECKED AND NO RESIDUAL ASPIRATED. NGT SECURED IN PLACE. VS REMAINS STABLE. AFEBRILE. FLACC 0 AT THIS TIME. RESPIRATIONS EVEN AND UNLABORED. CHEST RISE SYMMETRIC. HOB KEPT AT 30 DEGREES WITH ALL SAFETY PRECAUTIONS IN PLACE. WILL CONTINUE TO MONITOR PT.
[2019-08-10] MEDS: Z-GUARD PASTE TP SCH ×2 (00:20→12:05)
[2019-08-10] MEDS: FLUCONAZOLE 100 MG/NS PREMIX 50 ML IV SCH (00:20)
[2019-08-10] MEDS: MORPHINE SULFATE 2 MG/ML SYR IVP PRN ×3 (01:33→14:58)
--- NOTE | 2019-08-10 02:02 | NUR ---
NO CHANGE IN PT'S CONDITION AT THIS TIME. STILL REMAINS ON LEVOPHED DRIP AT 12MCG. RESPIRATIONS ARE EVEN AND UNLABORED. OXYGEN SATURATION WNL. PT STILL ON OXIMIZER AT 4L/MIN. FLACC 0. PT'S EYES ARE CLOSED. BED AT LOWEST POSSIBLE POSITION. WILL CONTINUE TO MONITOR PT.
--- NOTE | 2019-08-10 04:28 | NUR ---
VS STABLE AT THIS TIME. NO CHANGE IN PT'S CONDITION. PT REMAINS ON LEVOPHED DRIP. ALL SAFETY PRECAUTIONS ARE STILL IN PLACE. WILL CONTINUE TO MONITOR PT
[2019-08-10 04:53] LABS: HEMATOCRIT 29.9 % (36-48); HEMOGLOBIN 9.2 g/dL (12.0-16.0); MEAN CORPUSCULAR HEMOGLOBIN 35 pg (27-31); MEAN CORPUSCULAR HGB CONC 31 g/dL (33-37); MEAN CORPUSCULAR VOLUME 113.8 fL (80-94); RED BLOOD CELL COUNT(AUTO) 2.63 MIL/uL (4.20-5.40); RED CELL DISTRIBUTION WIDTH 22.7 % (11.6-13.7)
--- NOTE | 2019-08-10 05:05 | NUR ---
MORNING CARE PROVIDED TO PT. PT NOTED TO HAVE A BM THAT IS PASTE TO SOFT IN TEXTURE. DARK BROWN IN COLOR AND MODERATE IN AMOUNT. FEEDING PAUSED WHILE PT WAS BEING CLEANED. PT TOLERATED BEING TURNED AND REPOSITIONED FAIRLY. BOWER CATHETER CARE PROVIDED. BOWER EMPTIED AT THIS TIME. NGT ASPIRATED AND NO RESIDUAL ASPIRATED AT THIS TIME. PT CURRENTLY TOLERATING FEEDING WELL. TUBE FEEDING RESUMED. ALL SAFETY PRECAUTIONS ARE STILL IN PLACE. HOB AT 30 DEGREES. WILL CONTINUE TO MONITOR PT.
[2019-08-10] MEDS: PIPERACILLIN/TAZOBACTAM 2.25 GM in DEXTROSE 5% 50 ML IV SCH ×3 (06:24→23:29)
--- NOTE | 2019-08-10 06:32 | NUR ---
DR. ARITA AT BEDSIDE TO SEE PT. UPDATED HER REGARDING THE PT. RECEIVED AN ORDER TO D/C OCREOTIDE MARK
--- NOTE | 2019-08-10 07:00 | NUR ---
SUCCESSFULLY REPLACED BOWER CATHETER PER DR. ARITA'S ORDER. URINE NOTED UPON INSERTION BUT VERY MINIMAL. PT HAD ONE LARGE BM THAT IS DARK BROWN IN COLOR. PT TOLERATED BEING TURNED AND REPOSITIONED FAIRLY. WILL CONTINUE TO MONITOR PT.
--- NOTE | 2019-08-10 07:10 | NUR ---
RECEIVED BEDSIDE REPORT FROM ORIENTATION & MOBILITY SPECIALIST RN, HERLINDA, FOR CONTINUITY OF CARE. PATIENT OPENS EYES TO PAIN, UNABLE TO MAKE NEEDS KNOWN OR FOLLOW COMMANDS. PATIENT SKIN IS JAUNDICE, WARM, DRY, NOT INTACT, SACRAL PRESSURE ULCER AND LEFT BUTTOCKS SKIN TEAR. PATIENT IS ON NASAL OXIMIZER AT 4LPM, BREATHING IS EVEN AND UNLABORED. PATIENT IS SR ON MONITOR, LEVOPHED DRIP IS AT 12 MCG/KG/MIN. FLACC 0. PATIENT HAS NGT, -DECLAN, TO RIGHT NARES WITH TUBE FEEDING VITAL AF 1.2 AT 20 ML/HR WITH H20 WATER FLUSH 80 ML Q6H. PATIENT HAS BOWER CATHETER REPLACED WITH NEW ONE PER ORIENTATION & MOBILITY SPECIALIST RN. HOB IS 30 DEGREES, SIDE RAILS UP 3X, BED LOCKED IN LOW POSITION. SAFETY PRECAUTIONS ASSESSED AND ENFORCED, SOFT WRIST RESTRAINTS IN PLACE SINCE PATIENT PULLS ON TUBING, NO SIGNS OF INJURY NOTED. NO SIGNS OF DISTRESS AT THIS TIME. WILL CONTINUE TO MONITOR
[2019-08-10 07:32] LABS: WHITE BLOOD COUNT (AUTO) 52.7 K/uL (4.8-10.8)
[2019-08-10 07:34] LABS: PLATELET COUNT (AUTO) 50 K/uL (140-450)
[2019-08-10 07:37] LABS: LYMPHOCYTES % (MANUAL) 2 % (20-46); MONOCYTES % (MANUAL) 8 % (5-12)
--- NOTE | 2019-08-10 07:39 | NUR ---
DR. VAUGHN AND RESIDENT PHYSICIANS AT BEDSIDE, UPDATED ON PATIENT'S CONDITION, AWARE OF WBC 52.7 AND LACTIC ACID 6.1. WILL FOLLOW UP ON ANY ORDERS
[2019-08-10 07:50] LABS: ANION GAP 23.2 (8-16); CARBON DIOXIDE 20.2 mmol/L (21-32); CREATININE 2.8 mg/dL (0.6-1.3); POTASSIUM 3.4 mmol/L (3.5-5.1)
[2019-08-10] MEDS: LACTULOSE 20 GM/30 ML UDC PO SCH ×3 (08:10→16:22)
[2019-08-10] MEDS: CALCIUM ACETATE 667 MG TAB PO SCH ×2 (08:11→17:07)
[2019-08-10] MEDS: LACTOBACILLUS RHAMNOSUS GG 1 EACH CAP PO SCH (08:11)
[2019-08-10] MEDS: NYSTATIN 500 MU/5 ML UDC PO SCH ×4 (08:11→21:56)
[2019-08-10] MEDS: BLOOD GLUCOSE MONITORING 1 DEV DEV FS SCH ×3 (08:12→16:38)
--- NOTE | 2019-08-10 08:50 | NUR ---
SCHEDULED MEDS ADMINISTERED, PATIENT TOLERATED WELL. NO RESIDUAL NOTED FROM NGT.
[2019-08-10] MEDS ORDERED: PANTOPRAZOLE 40 MG INJ VIAL IVP SCH (09:00)
--- NOTE | 2019-08-10 09:05 | NUR ---
PATIENT MOANING AND FLACC IS 8, GIVEN PRN MORPHINE 2MG IVP, PATIENT TOLERATED WELL.
[2019-08-10] MEDS ORDERED: POTASSIUM CHLORIDE 20% 40 MEQ/15 ML UDC NG SCH (09:30)
--- NOTE | 2019-08-10 10:24 | NUR ---
RECEIVED A CALL FROM GEORGE OF [facility], SHE STATED THAT THEIR SINHALA SPEAKING NURSE SPOKE TO THE PATIENT'S FAMILY. PER GEORGE THE FAMILY STATED THAT FAMILY DID NOT WANT TO TAKE THE PATIENT HOME AND IF EVER THE PATIENT GET TRANSFERRED TO A SNF THEY WANT TO TOUR THE FACILITY FIRST BEFORE THEY AGREE. PER GEORGE SHE SPOKE WITH PATIENT'S DAUGHTER RAFAT AGAIN THIS MORNING AND SHE STATED THAT THEY DO NOT WANT THE PATIENT TO BE TRANSFERRED TO A SNF UNTIL THE PATIENT GETS STABLE. CM WILL FOLLOW UP.
--- NOTE | 2019-08-10 10:28 | NUR ---
PATIENT HAD 1 MODERATE BROWN LOOSE STOOL, SHE WAS CLEANED AND REPOSITIONED FOR COMFORT.
--- NOTE | 2019-08-10 11:20 | NUR ---
KAM GEM EXPERT AT BEDSIDE FOR ECHOCARDIOGRAM. NO SIGNS OF DISTRESS NOTED.
--- NOTE | 2019-08-10 11:26 | NUR ---
DR. FRENCH SPOKE WITH FAMILY REGARDING PLAN OF CARE AND RESUSCITATION STATUS, PATIENT'S FAMILY STATES THAT THEY WOULD LIKE TO SEE PATIENT BEFORE MAKING ANY DECISIONS.
[2019-08-10] MEDS: DEXT 5% /NACL 0.9% 1,000 ML IV SCH (11:32)
[2019-08-10 12:02] LABS: PROTHROMBIN TIME 13.9 secs (10.8-13.4)
[2019-08-10] MEDS ORDERED: PROBIOTIC SCREEN 1 EA MISC MC PRN (12:20)
[2019-08-10] MEDS: INSULIN LISPRO SLIDING SCALE 100 UNITS/ML VIAL SUBQ PRN (12:26)
--- NOTE | 2019-08-10 13:01 | NUR ---
DR. AYALA IN TO SEE PATIENT, UPDATED ON PATIENT'S CONDITION. WILL FOLLOW UP WITH ANY ORDERS.
--- NOTE | 2019-08-10 13:16 | NUR ---
*S.T. note* MD/DO order for bedside swallow eval received, chart reviewed. Pt seen at bedside asleep; no family members present at time of visit. This clinician spoke w/ special agent in charge Sue and Dr. Carmichael re: eval. DIANA Frederick stated pt will likely not arouse from sleep as she is actively dying. Dr. Carmichael requested that pt not be awoken for eval, thus hold eval at this time. Will recheck in 1 day, 08/11/19, if pt is appropriate to participate. If eval is no longer necessary, please consider cancelling order. Thank you.
--- NOTE | 2019-08-10 13:17 | NUR ---
SACRAL DRESSING CHANGED, Z-GUARD APPLIED, PATIENT TOLERATING WELL.
--- NOTE | 2019-08-10 14:37 | NUR ---
DR. FRENCH IS AT BEDSIDE TO TALK TO PATIENT'S GRANDDAUGHTER REGARDING PLAN OF CARE.
--- NOTE | 2019-08-10 15:26 | NUR ---
PATIENT HAD 1 MODERATE BLOODY STOOL, PATIENT CLEANED AND REPOSITIONED FOR COMFORT.
--- NOTE | 2019-08-10 15:28 | NUR ---
SPOKE TO DR. CRAWFORD REGARDING LACTULOSE AND PATIENT HAVING LOOSE STOOLS, STATES TO HOLD LACTULOSE FOR NOW.
--- NOTE | 2019-08-10 17:05 | NUR ---
DR. MODI IN TO SEE PATIENT, UPDATED ON PATIENT'S CONDITION. RECEIVED NEW ORDERS STATES TO GIVE LASIX AND PROTAMINE AFTER GIVEN ALBUMIN.
[2019-08-10] MEDS ORDERED: ALBUMIN HUMAN 25% 100 ML IV SCH ×2 (17:10→20:00)
[2019-08-10] MEDS ORDERED: NACL 0.9% 500 ML IV SCH (17:15)
[2019-08-10] MEDS: VANCOMYCIN 1,000 MG VIAL PO SCH (18:13)
[2019-08-10] MEDS: MIDODRINE 5 MG TAB PO SCH (18:14)
[2019-08-10] MEDS: PHARMACY COMMENTS MC SCH (18:14)
--- NOTE | 2019-08-10 18:16 | NUR ---
DR. GORDON IN TO SEE PATIENT, UPDATED ON PATIENT'S CONDITION. WILL FOLLOW UP ON ANY ORDERS
--- NOTE | 2019-08-10 19:15 | NUR ---
ENDORSED CONTINUITY OF CARE TO HAZMAT TANKER DRIVER RNMANJEET. NO SIGNS OF DISTRESS NOTED
--- NOTE | 2019-08-10 19:20 | NUR ---
CHANGE OF SHIFT REPORT GIVEN AT BEDSIDE BY DAY NURSE LOLITA. GRANDDAUGHTER AMOL AT BEDSIDE. PATIENT JAUNDICE. ON OXIMIZER 4L VIA NARES. PATIENT HAS NG TUBE IN RIGHT NARES. PLACEMENT PATENT BY AUSCULTATION. FEEDING RUNNING VITAL AF 1.2 RUNNING AT 35 ML/HR WITH WATER FLUSH OF 80ML/HR Q6H. NURSE STATES BOWER WAS REPLACED IN AM. WITH 20 ML OUTPUT OF URINE. SR ON MONITOR. PULSES FELT ON ALL EXTREMITIES. BRUISES NOTED ON BOTH LOWER INNER ANKLES AND BOTH INNER WRISTS. HR REGULAR. LUNG SOUNDS CLEAR AND SYMMETRICAL. RIGHT IJ TRIPLE LUMEN. ASYMPTOMATIC OF INFECTION. CENTRAL LINE RUNNING DEXTROSE 5% NS AT 10ML/HR. STATES POSITIVE FOR BLOOD IN THE STOOL. SACRAL SKIN TEAR STILL PRESENT PER DAY NURSE. LEVOPHED AT 10 MCG. POSSIBLE C DIFF PER DAY NURSE. STOOL SAMPLE SENT. NO FEVER. PERRL BOTH EYES. HEEL PROTECTORS PRESENT. NON BEHAVIORAL RESTRAINTS ON BUE. NO BROKEN SKIN NOTED UNDER RESTRAINTS. PATIENT RESPONDS TO NAME, SHAKING AND PAIN. RIGHT MIDLINE IV STILL PRESENT. ASYMPTOMATIC OF INFECTION. BOWEL SOUNDS ACTIVE IN ALL 4 QUADRANTS. HOB ELEVATED 30 DEGREES WITH SIDE RAILS UP. CALL LIGHT PRESENT. SAFETY PRECAUTIONS IN PLACE. VSS AT THIS TIME. NO S/S OF DISTRESS NOTED. WILL CONTINUE TO MONITOR.
[2019-08-10] MEDS ORDERED: BUMETANIDE 1 MG/4 ML VIAL IV SCH (19:30)
[2019-08-10 20:46] LABS: TRANSFERRIN 76 mg/dL (200 - 370)
[2019-08-10] MEDS ORDERED: FUROSEMIDE 20 MG/2 ML VIAL IVP SCH (21:00)
--- NOTE | 2019-08-10 21:30 | NUR ---
DR FUENTES AT PATIENT BEDSIDE. NOTIFIED OF UPDATED. STATED STOOL SAMPLE COLLECTED AND PENDING RESULTS.
[2019-08-10] MEDS: metroNIDAZOLE 500 MG/NS PREMIX 100 ML IV SCH (21:56)
[2019-08-10] MEDS: NOREPINEPHRINE 16 MG in DEXTROSE 5% 250 ML IV PRN (23:33)
[2019-08-11] VITALS (67 sets, daily range): BP systolic 73–129; BP diastolic 36–78
--- NOTE | 2019-08-11 00:10 | NUR ---
CALLED FOR RESTRAINT ORDERS. MD MCNEIL WILL PUT ORDER IN
[2019-08-11] MEDS: FLUCONAZOLE 100 MG/NS PREMIX 50 ML IV SCH (00:25)
[2019-08-11] MEDS: PHARMACY COMMENTS MC SCH ×3 (00:25→12:39)
[2019-08-11] MEDS: VANCOMYCIN 1,000 MG VIAL PO SCH ×3 (00:27→12:39)
[2019-08-11] MEDS: Z-GUARD PASTE TP SCH ×3 (00:28→22:49)
--- NOTE | 2019-08-11 00:30 | NUR ---
PATIENT PLACEMENT CHECKED. REINSERTED NGTUBE A LITTLE MORE. RETAPED. NO RESIDUAL NOTED. IN PLACE BY AUSCULTATION. TOLERATED MEDICATION ADMINISTRATION PER MD. WILL CONTINUE TO MONITOR.
--- NOTE | 2019-08-11 00:55 | NUR ---
MORPHINE GIVEN PER MD ORDERS . PATIENT MOANING. WILL CONTINUE TO MONITOR. VSS.
[2019-08-11] MEDS: MORPHINE SULFATE 2 MG/ML SYR IVP PRN ×3 (00:56→14:06)
--- NOTE | 2019-08-11 00:56 | NUR ---
MORPHINE GIVEN FOR MOANING. PT PULLING ON RESTRAINTS. WILL CONTINUE TO MONITOR. VSS AT THIS TIME
[2019-08-11] MEDS: NOREPINEPHRINE 16 MG in DEXTROSE 5% 250 ML IV PRN (02:14)
--- NOTE | 2019-08-11 02:14 | NUR ---
DECREASED LEVOPHED TO 8MCG/MIN. DRY WT 56.69. WILL CONTINUE TO MONITOR
--- NOTE | 2019-08-11 03:07 | NUR ---
FAMILY PRESENT AT PATIENT BEDSIDE. DAUGHTER RAFAT AND GRANDDAUGHTER AMOL. NOTIFIED THEM WE WILL KEEP CHECKING AND ASK IF THEY HAVE ANY QUESTIONS.
[2019-08-11] MEDS: metroNIDAZOLE 500 MG/NS PREMIX 100 ML IV SCH ×2 (04:36→12:38)
--- NOTE | 2019-08-11 05:05 | NUR ---
MORNING CARE PERFORMED. SMALL AMOUNT OF FLUFFY/ WATERY STOOL NOTED. STOOL SAMPLE RETRIEVED. PATIENT TOLERATED WELL. CATHETER/BOWER CARE PERFORMED. VSS. DRESSING CHANGED AND CLEANED. COLOR PINK AROUND WOUND AND GOOD COLOR WITHIN WOUND. WILL CONTINUE TO MONITOR. PATIENT HAS YELLOW URINE IN CATHETER. SEDIMENT NOTED.
[2019-08-11 05:35] LABS: HEMATOCRIT 27.4 % (36-48); HEMOGLOBIN 8.3 g/dL (12.0-16.0); MEAN CORPUSCULAR HEMOGLOBIN 35 pg (27-31); MEAN CORPUSCULAR HGB CONC 30 g/dL (33-37); MEAN CORPUSCULAR VOLUME 114.8 fL (80-94); PLATELET COUNT (AUTO) 24 K/uL (140-450); RED BLOOD CELL COUNT(AUTO) 2.39 MIL/uL (4.20-5.40); RED CELL DISTRIBUTION WIDTH 22.4 % (11.6-13.7)
--- NOTE | 2019-08-11 06:00 | NUR ---
CHECKED PLACEMENT FOR NGTUBE MEDICATION PASS. PLACEMENT IN PROPER PLACE BY AUSCULTATION. TOLERATED WELL. NO RESIDUAL. VSS
[2019-08-11 06:09] LABS: FOLIC ACID > 20.00 ng/mL (>3.0)
[2019-08-11 06:22] LABS: PROTHROMBIN TIME 14.5 secs (10.8-13.4)
[2019-08-11 06:37] LABS: ALBUMIN 2.1 g/dL (3.4-5.0); ANION GAP 22.2 (8-16); CARBON DIOXIDE 20.6 mmol/L (21-32); MAGNESIUM 2.2 mg/dL (1.8-2.4); PHOSPHORUS 7.5 mg/dL (2.5-4.9); POTASSIUM 3.8 mmol/L (3.5-5.1); TOTAL BILIRUBIN 13.5 mg/dL (0.0-1.0)
[2019-08-11] MEDS: MIDODRINE 5 MG TAB PO SCH ×2 (06:37→12:39)
[2019-08-11] MEDS: PIPERACILLIN/TAZOBACTAM 2.25 GM in DEXTROSE 5% 50 ML IV SCH ×2 (06:37→15:00)
--- NOTE | 2019-08-11 06:41 | NUR ---
LAB CALLED WITH CRITICAL VALUE BUN 90 CREATININE 3.0 PER COMMUNITY HEALTH EDUCATOR ON TELEPHONE. NOTIFIED DR. CLARKE RESIDENT AT 0650 AND OTHER CRITICAL LAB VALUE PTT 51.[address] CLARKE AT 0650. WILL CONTINUE TO MONITOR.
--- NOTE | 2019-08-11 07:01 | NUR ---
RECEIVED BEDSIDE REPORT FROM EMS DRIVER RN, MANJEET, FOR CONTINUITY OF CARE. PATIENT OPENS EYES TO PAIN, UNABLE TO MAKE NEEDS KNOWN OR FOLLOW COMMANDS. PATIENT SKIN IS JAUNDICE, WARM, DRY, NOT INTACT, SACRAL PRESSURE ULCER. PATIENT IS ON NASAL OXIMIZER AT 4LPM, BREATHING IS EVEN AND UNLABORED. PATIENT IS SR ON MONITOR, LEVOPHED DRIP IS AT 8 MCG/KG/MIN. FLACC 0. PATIENT HAS NGT, -DECLAN, TO RIGHT NARES WITH TUBE FEEDING VITAL AF 1.2 AT 35 ML/HR WITH H20 WATER FLUSH 80 ML Q6H. PATIENT HAS BOWER CATHETER IN PLACE TO CLEAR YELLOW URINE. HOB IS 30 DEGREES, SIDE RAILS UP 3X, BED LOCKED IN LOW POSITION. SAFETY PRECAUTIONS ASSESSED AND ENFORCED, SOFT WRIST RESTRAINTS IN PLACE SINCE PATIENT PULLS ON TUBING, NO SIGNS OF INJURY NOTED. NO SIGNS OF DISTRESS AT THIS TIME. WILL CONTINUE TO MONITOR
--- NOTE | 2019-08-11 07:50 | NUR ---
DR. VAUGHN AND RESIDENT PHYSICIANS AT BEDSIDE. UPDATED ON PATIENT'S CONDITION.
[2019-08-11 08:10] LABS: LYMPHOCYTES % (MANUAL) 10 % (20-46)
[2019-08-11 08:11] LABS: EOSINOPHILS % (MANUAL) 2 % (0-4); MONOCYTES % (MANUAL) 8 % (5-12)
[2019-08-11] MEDS: NYSTATIN 500 MU/5 ML UDC PO SCH ×2 (08:56→12:38)
[2019-08-11] MEDS: BLOOD GLUCOSE MONITORING 1 DEV DEV FS SCH ×2 (08:56→13:36)
[2019-08-11] MEDS: LACTOBACILLUS RHAMNOSUS GG 1 EACH CAP PO SCH (08:56)
[2019-08-11] MEDS: CALCIUM ACETATE 667 MG TAB PO SCH (08:56)
[2019-08-11] MEDS ORDERED: LACTULOSE 20 GM/30 ML UDC PO SCH (09:00)
[2019-08-11 10:45] LABS: MEAN CORPUSCULAR HGB CONC 30 g/dL (33-37)
[2019-08-11] MEDS ORDERED: ALBUMIN HUMAN 25% 100 ML IV SCH (10:51)
[2019-08-11 10:53] LABS: HEMATOCRIT 29.2 % (36-48); HEMOGLOBIN 8.8 g/dL (12.0-16.0); MEAN CORPUSCULAR HEMOGLOBIN 35 pg (27-31); MEAN CORPUSCULAR VOLUME 114.9 fL (80-94); RED BLOOD CELL COUNT(AUTO) 2.54 MIL/uL (4.20-5.40); RED CELL DISTRIBUTION WIDTH 22.1 % (11.6-13.7)
--- NOTE | 2019-08-11 10:53 | NUR ---
DR. MACIAS IS HERE TO SEE PATIENT
[2019-08-11 11:34] LABS: WHITE BLOOD COUNT (AUTO) 48.8 K/uL (4.8-10.8)
[2019-08-11 11:35] LABS: PLATELET COUNT (AUTO) 17 K/uL (140-450)
[2019-08-11 11:37] LABS: LYMPHOCYTES % (MANUAL) 5 % (20-46); MONOCYTES % (MANUAL) 6 % (5-12)
[2019-08-11] MEDS: DEXT 5% /NACL 0.9% 1,000 ML IV SCH (12:39)
--- NOTE | 2019-08-11 12:44 | NUR ---
*S.T. note* Follow-up on patient's appropriateness to participate in eval. Per transmitter engineer in charge Sue, pt mostly somnolent. Will hold eval at this time. Please consider cancelling order since pt is not able to participate. Thank you.
[2019-08-11] MEDS: INSULIN LISPRO SLIDING SCALE 100 UNITS/ML VIAL SUBQ PRN (13:37)
--- NOTE | 2019-08-11 13:51 | NUR ---
DR. HERBERT IS HERE TO SEE PATIENT, UPDATED ON PATIENT'S CONDITION
--- NOTE | 2019-08-11 14:30 | NUR ---
DR. FRENCH AND BUSINESS LAW PROFESSOR ENMA IS HERE TO SPEAK WITH PATIENT'S DAUGHTER, RAFAT, STATES THAT PATIENT IS PROGRESSIVELY GETTING WORSE AND DUE TO MEDICAL CONDITION IS NOT GETTING BETTER. WBC IS NOT IMPROVING AND WOUNDS ARE GETTING WORSE DUE TO PATIENT'S HEALTH COMPENSATING. PATIENT'S DAUGHTER VERBALIZED UNDERSTANDING.
--- NOTE | 2019-08-11 14:45 | NUR ---
MET WITH THE PATIENT'S DAUGHTER RAFAT TOGETHER WITH DR FRENCH REGARDING COMFORT MEASURES. ALL CONCERNS AND QUESTIONS ANSWERED BY DR FRENCH. DAUGHTER IS AGREEABLE WITH COMFORT MEASURES. WILL HAVE PAPER WORKS SIGNED.
--- NOTE | 2019-08-11 14:54 | NUR ---
08/11/19 RD FOLLOW UP COMPLETED PLEASE REFER TO NUTRITION ASSESSMENT UNDER CARE ACTIVITY FOR ESTIMATED NUTRITIONAL NEEDS. 1. INCREASE TUBE FEEDING VITAL HP TO 55 ML/HR -THIS WILL PROVIDES 1320 KCAL AND 115 GM OF PROTEIN MEETING 79% OF CALORIES AND 100% OF PROTEIN 2. CONTINUE FREE WATER FLUSH [address] TO FOLLOW-UP 2-3 DAYS, HIGH RISK RUBENS RAWLS, RD
--- NOTE | 2019-08-11 15:36 | NUR ---
RECEIVED A CALL FROM PATIENT'S PRIMARY RN, SHE STATED DR CLARKE AT BEDSIDE TALKING TO THE PATIENT'S DAUGHTER RAFAT. SHE STATED THAT PATIENT'S DAUGHTER WANTS TO SPEAK TO DR. HERBERT AT 1800 AND WILL DECIDE AFTER THAT.
--- NOTE | 2019-08-11 15:45 | NUR ---
MET WITH THE PATIENT'S DAUGHTER AGAIN TOGETHER WITH DR. FRENCH AT THE BEDSIDE. PATIENT'S SIGNED COMFORT MEASURES FORM. COPY PLACED IN THE CHART. PROVIDED A COPY TO THE PATIENT'S DAUGHTER WELL. PRIMARY RN MADE AWARE.
--- NOTE | 2019-08-11 15:50 | NUR ---
PATIENT'S DAUGHTER, RAFAT, SPOKE WITH DR. FRENCH AND EMBALMER APPRENTICE ENMA, REGARDING PLACING ON PATIENT ON COMFORT CARE. CODE STATUS IS CHANGED TO DNR/DNI WITH COMFORT MEASURES ONLY AND COPY IS IN THE CHART.
[2019-08-11] MEDS ORDERED: MORPHINE SULFATE 2 MG/ML SYR IVP PRN (16:00)
[2019-08-11] MEDS ORDERED: MORPHINE SULFATE 2 MG/ML SYR IVP SCH (16:00)
--- NOTE | 2019-08-11 16:00 | NUR ---
WOUND CARE NOTE: SKIN ASSESSMENT DONE WITH PRIMARY RN, PT. ADMITTED WITH SACRALCOCCYX PRESSURE ULCER STAGE 3, BUTTERFLY SHAPE FROM SACROCOCCYX EXTENDED TO R/L BUTTOCK WITH 7X5X0.3CM, DANILE WOUND SKIN FRAGILE AND INDICATED FURTHER DAMAGE. SPOKE TO DAUGHTER AND EXPLAINED PT'S SKIN CONDITION, WILL CONTINUE CURRENT TREATMENT WITH Z GUARD AND COVER WITH OPTIFOAM. -TURN AND REPOSITION PATIENT Q2H -ASSESS AND MONITOR SKIN CONDITION DURING POSITION CHANGE, PLEASE PAY ATTENTION TO LEFT AND RIGHT BUTTOCKS -OFFLOAD BILATERAL HEELS BY PLACING PILLOWS UNDER CALVES AT ALL TIMES, UNLESS OTHERWISE CONTRAINDICATED -HEEL RAISERS TO BOTH HEELS AT ALL TIMES -PRESSURE REDISTRIBUTION SURFACE THERAPY -KEEP SKIN CLEAN AND DRY AT ALL TIMES. RECOMMENDATIONS DISCUSSED WITH PRIMARY RN
[2019-08-11] MEDS ORDERED: LORazepam 2 MG/ML VIAL IVP PRN (16:15)
[2019-08-11] MEDS ORDERED: HYOSCYAMINE 0.125 MG TAB SL PRN (16:15)
[2019-08-11] MEDS ORDERED: ATROPINE 1% OP SOL 5ML BTL PO PRN (16:25)
[2019-08-11] MEDS: MORPHINE SULFATE 100 MG in NACL 0.9% 90 ML IV PRN (16:54)
[2019-08-11] MEDS ORDERED: CALCIUM ACETATE 667 MG TAB NG SCH (17:00)
--- NOTE | 2019-08-11 17:03 | NUR ---
D/C NGT AND IVF, PATIENT TOLERATED WELL. STARTED ON MORPHINE DRIP FOR COMFORT. PATIENT IS RESTING COMFORTABLY.
--- NOTE | 2019-08-11 18:00 | NUR ---
REMOVED RESTRAINTS SINCE PATIENT IS ON COMFORT CARE, NO SIGNS OF INJURY NOTED, PATIENT IS IN NO SIGNS OF DISTRESS
--- NOTE | 2019-08-11 19:15 | NUR ---
RECEIVED BEDSIDE REPORT FROM DE. FOR CONTINUITY OF CARE. PATIENT OPENS EYES TO PAIN, UNABLE TO MAKE NEEDS KNOWN OR FOLLOW COMMANDS. PATIENT SKIN IS JAUNDICE, WARM, DRY, NOT INTACT, SACRAL PRESSURE ULCER. PATIENT IS ON NASAL OXIMIZER AT 4LPM, BREATHING IS EVEN AND UNLABORED. PATIENT IS SR ON MONITOR, FLACC 0. PATIENT HAS BOWER CATHETER IN PLACE TO CLEAR YELLOW URINE. HOB IS 30 DEGREES, SIDE RAILS UP 3X, BED LOCKED IN LOW POSITION. SAFETY PRECAUTIONS ASSESSED AND ENFORCED, . NO SIGNS OF DISTRESS AT THIS TIME. WILL CONTINUE TO MONITOR, DAUGHTER AT THE BEDSIDE, LEVOPHED OFF. WILL KEEP THE PT COMFORTABLE
--- NOTE | 2019-08-11 22:45 | NUR ---
PT COMFORTABLE, CLEANED AND REPOSITIONED, FAMILY AT THE BEDSIDE.
[2019-08-12] VITALS (8 sets, daily range): BP systolic 50–85; BP diastolic 23–44
--- NOTE | 2019-08-12 00:25 | NUR ---
PT COMFORTABLE, LOW B/P, FAMILY AT THE BEDSIDE.
--- NOTE | 2019-08-12 01:28 | NUR ---
DAUGHTER AT THE BEDSIDE, PT COMFORTABLE, CONTINUE ON MORPHINE DRIP, WILL CONTINUE TO MONITOR CLOSELY.
--- NOTE | 2019-08-12 05:01 | NUR ---
PT COMFORTABLE, DAUGHTER AT THE BEDSIDE, PT CLEANED AND REPOSITIONED.
[2019-08-12 05:33] LABS: FERRITIN 1931 ng/mL (15-150)
--- NOTE | 2019-08-12 05:52 | NUR ---
PT COMFORTABLE, PT WILL BE GOING TO TELE/ MED SURGE PER DR. JIMENEZ.
--- NOTE | 2019-08-12 07:22 | NUR ---
BEDSIDE REPORT GIVEN TO DIANA CRISOSTOMO, PT COMFORTABLE, NO S/S OF ANY ACUTE DISTRESS, DAUGHTER STEPPED OUT AND WILL BE COMING BACK IN HALF AN HOUR.
--- NOTE | 2019-08-12 07:30 | NUR ---
RECEIVED BEDSIDE REPORT FROM PHYSICAL METEOROLOGIST RN. PT IS ON COMFORT CARE, FLACC 0, HR 62, RR 6, NO MOANING OR GRIMACING NOTED. AFEBRILE. NORMAL SINUS RHYTHM ON MONITOR. PT IS ON O2 AT 4 LPM VIA OXIMIZER. NO SIGNS OF RESPIRATORY DISTRESS NOTED. BREATHING EVEN AND UNLABORED. CENTRAL LINE TLC TO RIGHT IJ PATENT, ASYMPTOMATIC AND INTACT, RUNNING MORPHINE DRIP AT 4 MG/HR. ABDOMEN SOFT, FLAT, NONTENDER. BOWER CATH IN PLACE DRAINING DARK AHMET URINE TO GRAVITY DRAINAGE BAG. DRESSING CLEAN, DRY AND INTACT TO SACRAL AREA. SKIN IS DRY AND WARM TO TOUCH, BLLE +2 EDEMA NOTED. HEEL PROTECTORS IN PLACE. BED IN LOWEST POSITION LOCKED. NO SIGNS OF DISTRESS NOTED AT THIS TIME. WILL CONTINUE OT MONITOR.
--- NOTE | 2019-08-12 09:30 | NUR ---
DAUGHTER AT BEDSIDE. UPDATES GIVEN ON PT'S CONDITION.
--- NOTE | 2019-08-12 10:50 | NUR ---
PT TRANSFERRED TO TELEMETRY ROOM 118. REPORT GIVEN TO DIANA APPIAH AT BEDSIDE. PT IS ON MORPHINE DRIP. DAUGHTER AT BEDSIDE. NO SIGNS OF DISTRESS NOTED AT THIS TIME.
--- NOTE | 2019-08-12 10:54 | NUR ---
PATIENT ARRIVED ON UNIT AT THIS TIME ACCOMPANIED BY ICU NURSE AND DAUGHTER RAFAT.PATIENT IS RESTING ON BED AT THIS TIME COMFORTABLY. PT IS ON COMFORT CARE AT THIS TIME, MORPHINE DRIP IS INFUSING AT 6ML/ HR VIA RIJ TRIPLE LUMEN. VITAL SIGNS TAKEN,BP 62/30,HR 60, RR 7, SPO2 AT 96 VIA OXIMIZER, FLACC 0 NO MOANING OR GRIMACING NOTED. TELE MONITOR ATTACHED. NO SIGNS OF DISTRESS NOTED. PT IS ON O2 AT 4 LPM VIA OXIMIZER. NO SIGNS OF RESPIRATORY DISTRESS NOTED. BREATHING EVEN AND UNLABORED. BOWER CATH IN PLACE DRAINING AHMET URINE TO GRAVITY DRAINAGE BAG. SACRAL WOUND NOTED AND DRESSING CLEAN, DRY AND INTACT. BLLE +2 EDEMA NOTED. HEEL PROTECTORS IN PLACE. PATIENT IS NPO AT THIS TIME AND SIGN POSTED ON DOOR. SAFETY MEASURES IN PLACE. BED IN LOWEST POSITION AND CALL LIGHT WITHIN REACH. BED ALARM ACTIVATED AND WOUND BED IS ON. CONTACT PRECAUTION FOR C-DIFF IN PLACE AND SIGN POSTED. EDUCATED DAUGHTER RAFAT ON C-DIFF PRECAUTION AND INSTRUCTED RAFAT TO PUT ON PPE AT ALL TIME IN PATIENT'S ROOM, RAFAT SAID OK.
--- NOTE | 2019-08-12 11:05 | NUR ---
DR FRENCH IS TALKING TO PATIENT'S DAUGHTER RAFAT AT BEDSIDE.
--- NOTE | 2019-08-12 11:33 | NUR ---
S.T. NOTE Pt on comfort care measures at this time. Will defer eval at this time.
--- NOTE | 2019-08-12 11:45 | NUR ---
PATIENT IS RESTING COMFORTABLY AT THIS TIME. NO SIGNS OF PAIN, NO FACIAL GRIMACING, HEART RATE IS 61 AT THIS TIME. FAMILY MEMBERS ARE BY BEDSIDE. NO SIGNS DISTRESS NOTED. SAFETY MEASURES IN PLACE. BED IN LOW POSITION AND CALL LIGHT WITHIN REACH. BED ALARM ACTIVATED AND WOUND BED IS ON. INSTRUCTED FAMILY MEMBERS TO USE THE CALL LIGHT FOR ANY ASSISTANCE AND FAMILY MEMBERS AWARE.
[2019-08-12] MEDS: MORPHINE SULFATE 100 MG in NACL 0.9% 90 ML IV PRN ×2 (13:14→22:40)
--- NOTE | 2019-08-12 13:14 | NUR ---
HUNG A NEW BAG OF MORPHINE, PATIENT IS RESTING ON BED COMFORTABLY. NO SIGNS OF DISTRESS NOTED. FAMILY ARE BY BEDSIDE. SAFETY MEASURES IN PLACE. BED IN LOW POSITION AND CALL LIGHT WITHIN REACH. BED ALARM ACTIVATED.
[2019-08-12] MEDS: Z-GUARD PASTE TP SCH (13:16)
--- NOTE | 2019-08-12 13:30 | NUR ---
PERFORMED WOUND CARE. CLEANSED WITH NS AND PAT DRY. APPLIED Z-GUARD AND CHANGED OPTIFOAM. PATIENT IS RESTING ON BED. NO SIGNS DISTRESS NOTED. SAFETY MEASURES IN PLACE. BED IN LOW POSITION AND CALL LIGHT WITHIN REACH. BED ALARM ACTIVATED.
--- NOTE | 2019-08-12 13:50 | NUR ---
DR FRENCH WAS AT BEDSIDE AND PATIENT IS GROANING BY MAKING THE SOUND " AHH....". PER DR FRENCH, INCREASE THE MORPHINE DRIP TO 8ML/HR. PATIENT IS RESTING QUIETLY NOW. RESPIRATIONE TRENT AND UNLABORED, SPO2 AT 98%, PULSE 61. NO SIGNS DISTRESS NOTED. SAFETY MEASURES IN PLACE. BED IN LOW POSITION AND CALL LIGHT WITHIN REACH. BED ALARM ACTIVATED.
--- NOTE | 2019-08-12 15:02 | NUR ---
PATIENT'S DAUGHTER RAFAT REQUESTED IF WE CAN PROVIDE A OFFICE SERVICE COORDINATOR TO COME IN AND PERFORM THE LAST RITES. CONTACTED [employer] [facility] [facility] AT [phone], ABLE TO SPEAK TO ROGELIO. SHE STATED ALL THE DIOCESE ARE IN A CONFERENCE BUT SHE WILL TRY TO FIND OUT IF THERE IS AN LOCOMOTIVE PIPE FITTER OFFICE SERVICE COORDINATOR FOR TODAY. RECEIVED A CALL FROM ROGELIO, SHE STATED THAT THAT SHE HAS ONE OFFICE SERVICE COORDINATOR COMING FROM [facility]. PATIENT'S DAUGHTER RAFAT MADE AWARE.
--- NOTE | 2019-08-12 15:13 | NUR ---
PATIENT IS RESTING ON BED COMFORTABLY. MORPHINE DRIP IS RUNNING AT 8 ML/HR. NO SIGNS DISTRESS NOTED. DAUGHTER RAFAT BY BEDSIDE AND WEARING PPE. SAFETY MEASURES IN PLACE. BED IN LOW POSITION AND CALL LIGHT WITHIN REACH. BED ALARM ACTIVATED AND WOUND BED IS ON.
--- NOTE | 2019-08-12 15:50 | NUR ---
DR FRENCH IS ASSESSING PATIENT AND TALKING TO PATIENT'S DAUGHTER RAFAT AT BEDSIDE. PER DR FRENCH, INCREASE MORPHINE DRIP TO 10 ML/HR TO MAKE PATIENT COMFORTABLE. INCREASED PER MD ORDER. NO SIGNS OF DISTRESS NOTED. SAFETY MEASURES IN PLACE. BED IN LOW POSITION AND CALL LIGHT WITHIN REACH. BED ALARM ACTIVATED AND WOUND BED IS ON.
--- NOTE | 2019-08-12 17:19 | NUR ---
DR FRENCH IS TALKING TO PATIENT'S DAUGHTER RAFAT AT BEDSIDE. PER DR FRENCH, PATIENT IS MOANING AND INCREASE MORPHINE DRIP TO 12 ML/HR TO MAKE PATIENT COMFORTABLE. INCREASED PER MD ORDER. NO SIGNS OF DISTRESS NOTED. SAFETY MEASURES IN PLACE. BED IN LOW POSITION AND CALL LIGHT WITHIN REACH. BED ALARM ACTIVATED AND WOUND BED IS ON.
--- NOTE | 2019-08-12 17:45 | NUR ---
DR ARITA IS TALKING TO PATIENT'S DAUGHTER AT BEDSIDE. PER DR ARITA, BRING ONE MORE EXTRA WARM BLANKET FOR PATIENT AND INCREASE MORPHINE DRIP TO 14 ML/HR FOR PATIENT'S COMFORT. PATIENT IS RESTING ON BED COMFORTABLY. NO SIGNS OF DISTRESS NOTES. SAFETY MEASURES IN PLACE. BED IN LOW POSITION AND CALL LIGHT WITHIN REACH. BED ALARM ACTIVATED AND WOUND BED IS ON.
--- NOTE | 2019-08-12 19:15 | NUR ---
ENDORSED PATIENT AT BEDSIDE TO CASTER OPERATOR NURSE FOR CONTINUITY OF CARE. PATIENT RESTING COMFORTABLY ON BED AT THIS TIME. DAUGHTER RAFAT BY BEDSIDE. NO SIGNS OF DISTRESS NOTED. SAFETY MEASURES IN PLACE. TELE MONITOR ATTACHED. BED IN LOW POSITION AND CALL LIGHT WITHIN REACH. BED ALARM ACTIVATED AND WOUND BED IN ON.
--- NOTE | 2019-08-12 19:16 | NUR ---
RECEIVED PT ON BED WITH EYES CLOSED, FLACC-0, NO RESP DISTRESS NOTED, ON MORPHINE DRIP AT 14MG/H FOR COMFORT MEASURES, DAUGHTER RAFAT AT BEDSIDE, PLAN OF CARE DISCUSSED, SAFETY MEASURES IN PLACE, CALL LIGHT WITHIN REACH.
--- NOTE | 2019-08-12 21:00 | NUR ---
SEEN PT SLEEPING, FLACC-0, VITAL SIGNS:BP-48/23, SAT-97%, HR-60, MONITORED CLOSELY.
--- NOTE | 2019-08-12 22:43 | NUR ---
PT SLEEPING, FLACC-0, NO MOANING OR GROANING NOTED, NEW MORPHINE DRIP BAG STARTED AT SAME RATE OF 14MG/H, VITAL SIGNS FOLLOWS:BP-48/24, HR-52, SAT-97%, RR-8, CONTINUE COMFORT MEASURES, FAMILY MEMBERS AND DAUGHTER AT BEDSIDE.
--- NOTE | 2019-08-12 23:30 | NUR ---
PT SLEEPING, FLACC-0, CONTINUE ON MORPHINE DRIP AT 14MG/H, NO SIGNS OF DISTRESS, VITAL SIGNS TAKEN, HYPOTENSIVE AND BRADYCARDIC, SAT-98%, DAUGHTER AT BEDSIDE, CONTINUE TO MONITOR CLOSELY.
[2019-08-13] VITALS: BP 50/25
[2019-08-13] MEDS: Z-GUARD PASTE TP SCH (00:46)
--- NOTE | 2019-08-13 00:46 | NUR ---
PT SEEN SLEEPING, BP-45/22, HR-52, SAT-94%, RR-7, DUE Z-GUARD TO SACRAL AREA NOT APPLIED, DAUGHTER PREFER THE PT NOT TO BE MOVED AT THIS TIME, MONITORED CLOSELY.
--- NOTE | 2019-08-13 01:45 | NUR ---
PT ASYSTOLE ON THE MONITOR, DR VALADEZ CHECKED AND PRONOUNCED PT TIME OF AT 0145, DAUGHTER AT BEDSIDE.
--- NOTE | 2019-08-13 01:58 | NUR ---
TALKED TO GILLIAN FROM [facility], PT NOT CANDIDATE FOR ORGAN DONOR WITH REF NUMBER [id number].
--- NOTE | 2019-08-13 02:32 | NUR ---
CALL BACK FROM [facility]ONERS OFFICE, PT NOT A CORONERS CASE AND RELEASE THE BODY WITH .
--- NOTE | 2019-08-13 02:50 | NUR ---
TALKED TO ELYSIA FROM [facility], FLY TIER WILL BE HERE FOR HORIZONTAL RESAW OPERATOR WITHIN 2 HOURS, FAMILY AT BEDSIDE MADE AWARE.
--- NOTE | 2019-08-13 03:15 | NUR ---
POST MORTEM CARE DONE WITH CROW BARBER, BOWER CATHETER DISCONTINUED, RT IJ CVP LINE AND RT ARM MIDLINE DISCONTINUED WITH CATHETER INTACT, PRESSURE DRESSING APPLIED TO SITE, NO BLEEDING NOTED, FAMILY MEMBERS DECIDED TO STAY IN THE ROOM AND WAIT FOR SUPERSONIC ENGINEER.
--- NOTE | 2019-08-13 05:26 | NUR ---
PT'S BODY PICKED UP BY [facility]P ACCOMPANIED BY DAUGHTER RAFAT.
== END 2019-08-13 01:45 | disposition expired | DRG 720 ==
LOC: MED 15:01 → MIC 18:37 → MTU 08-12 10:54
PROVIDERS: ADMIT General Practice; ATTEND General Practice
PROC: 02H633Z Insertion of Infusion Device into Right Atrium, Percutaneous Approach (ICD-10-PCS; 2019-08-08)
PROC: B244ZZZ Ultrasonography of Right Heart (ICD-10-PCS; 2019-08-08)
PROC: 30233K1 Transfusion of Nonautologous Frozen Plasma into Peripheral Vein, Percutaneous Approach (ICD-10-PCS; principal; 2019-08-11)
DX: A41.9 Sepsis, unspecified organism (principal); I21.A1 Myocardial infarction type 2; J96.21 Acute and chronic respiratory failure with hypoxia; I46.9 Cardiac arrest, cause unspecified; E43 Unspecified severe protein-calorie malnutrition; K83.09 Other cholangitis; N17.0 Acute kidney failure with tubular necrosis; R65.21 Severe sepsis with septic shock; G93.41 Metabolic encephalopathy; B37.0 Candidal stomatitis; Z68.22 Body mass index [BMI] 22.0-22.9, adult; E87.0 Hyperosmolality and hypernatremia; C19 Malignant neoplasm of rectosigmoid junction; C78.7 Secondary malignant neoplasm of liver and intrahepatic bile duct; D53.9 Nutritional anemia, unspecified; D68.9 Coagulation defect, unspecified; D69.6 Thrombocytopenia, unspecified; E78.1 Pure hyperglyceridemia; E83.39 Other disorders of phosphorus metabolism; E87.1 Hypo-osmolality and hyponatremia; I12.9 Hypertensive chronic kidney disease with stage 1 through stage 4 chronic kidney disease, or unspecified chronic kidney disease; I10 Essential (primary) hypertension; E86.0 Dehydration; E83.41 Hypermagnesemia; E87.8 Other disorders of electrolyte and fluid balance, not elsewhere classified; K59.09 Other constipation; L89.619 Pressure ulcer of right heel, unspecified stage; L89.152 Pressure ulcer of sacral region, stage 2; N18.9 Chronic kidney disease, unspecified; Z85.038 Personal history of other malignant neoplasm of large intestine; Z85.05 Personal history of malignant neoplasm of liver; Z90.49 Acquired absence of other specified parts of digestive tract; Z66 Do not resuscitate
CPT/HCPCS: 36415; 36556; 70450; 71045; 71250; 73630; 74018; 76700; 80048; 80053; 80076; 80202; 81003; 82140; 82150; 82272; 82550; 82553; 82607; 82728; 82746; 82948; 82977; 83036; 83540; 83605; 83690; 83735; 83874; 83880; 84100; 84300; 84436; 84443; 84484; 85025; 85045; 85610; 85730; 86886; 86900; 86901; 87040; 87070; 87081; 87086; 87186; 93005; 93925; 93970; 96361; 96365; 96367; 96375; 99291; C1751; C9113; J1450; J1815; J2270; J2354; J2405; J2543; J3010; J3370; J3430; J3490; J7030; J7042; J7060; P9017; P9046; Q0092